=== PATIENT | female | born 1990 | race Caucasian/White ===

== ENCOUNTER 2017-06-05 11:16 | Inpatient (IN) | payer MEDICAID ==
[2017-06-05 11:53] LABS: AMNISURE (ROM) POSITIVE (NEGATIVE)
[2017-06-05 11:55] LABS: APPEARANCE,URINE SLIGHTLY-CLOUDY; BILIRUBIN,URINE NEGATIVE (NEGATIVE); GLUCOSE, URINE NEGATIVE (NEGATIVE); KETONES,URINE NEGATIVE (NEGATIVE); LEUKOCYTE ESTERASE,URINE NEGATIVE (NEGATIVE); NITRITE,URINE NEGATIVE (NEGATIVE); PROTEIN,URINE NEGATIVE (NEGATIVE); URINE SPECIFIC GRAVITY 1.005; UROBILINOGEN,URINE NEGATIVE mg/dL (<2.0)
[2017-06-05 12:12] LABS: URINE BARBITURATES SCREEN NEGATIVE; URINE METHADONE SCREEN NEGATIVE; URINE OPIATES LOW NEGATIVE; URINE PHENCYCLIDINE SCREEN NEGATIVE
[2017-06-05] MEDS ORDERED: AZITHROMYCIN INJ 500 MG VIAL IV ONE (12:43)
[2017-06-05] MEDS ORDERED: CITRIC ACID/SODIUM CITRATE ORAL SOLN 15 ML UDCUP ONE (12:43)
[2017-06-05] MEDS ORDERED: ONDANSETRON HCL INJ/PF 4 MG/2 ML SDV ONE ×3 (12:46→13:21)
[2017-06-05] MEDS ORDERED: KETOROLAC TROMETHAMINE INJ/PF 30 MG/1 ML SDV ONE (13:20)
[2017-06-05] MEDS ORDERED: OXYTOCIN 10 UNIT/ML VIAL ONE (13:20)
[2017-06-05 13:21] LABS: ABSOLUTE BASOPHILS # (AUTO) 0.1 10^3/uL (0.0-0.2); ABSOLUTE LYMPHOCYTES (AUTO) 1.8 10^3/uL (0.5-4.7); ABSOLUTE MONOCYTES (AUTO) 0.7 10^3/uL (0.1-1.4); ABSOLUTE NEUT (AUTO) 10.9 10^3/uL (1.7-8.2); BASOPHILS % (AUTO) 0.4 % (0-2); EOSINOPHILS % (AUTO) 0.3 % (0-6); HEMATOCRIT 36.9 % (36.0-47.0); HGB HCT DIFFERENCE 2.1; MEAN CORPUSCULAR HEMOGLOBIN 32.8 pg (27.0-33.4); MEAN CORPUSCULAR HGB CONC 35.4 g/dL (32.0-36.0); MEAN CORPUSCULAR VOLUME 93 fl (80-97); MONOCYTES % (AUTO) 5.5 % (3-13); RED BLOOD COUNT 3.97 10^6/uL (3.72-5.28); SEGMENTED NEUTROPHILS % (AUTO) 80.8 % (42-78); WHITE BLOOD COUNT 13.5 10^3/uL (4.0-10.5)
[2017-06-05] MEDS ORDERED: FENTANYL CITRATE INJ/PF 100 MCG/2 ML AMPUL ONE (13:21)
[2017-06-05] MEDS ORDERED: ACETAMINOPHEN 100 ML IV ONE (13:21)
[2017-06-05] MEDS ORDERED: EPHEDRINE SULFATE INJ 50 MG/1 ML AMPULE ONE (13:21)
[2017-06-05] MEDS ORDERED: OXYTOCIN/NORMAL SALINE 20 UNIT/1,000 ML RTUINJ ONE (13:21)
[2017-06-05] MEDS ORDERED: MIDAZOLAM 2 MG/2 ML INJ ONE (13:21)
[2017-06-05] MEDS ORDERED: PHENYLEPHRINE HCL INJ/PF 10 MG/1 ML SDV ONE (13:33)
[2017-06-05] MEDS ORDERED: ACETAMINOPHEN 325 MG TABLET PO PRN (16:26)
[2017-06-05] MEDS ORDERED: MEASLES,MUMPS&RUBELLA VACC/PF 0.5 ML VIAL SUBCUT PRN (16:26)
[2017-06-05] MEDS ORDERED: PROMETHAZINE HCL INJ 25 MG/1 ML VIAL IV PRN (16:26)
[2017-06-05] MEDS ORDERED: ACETAMINOPHEN 100 ML IV PRN (16:26)
[2017-06-05] MEDS ORDERED: DIPH/PERTUSS(ACELL)/TETANUS VAC/PF 0.5 ML SYR (>=10YO) IM PRN (16:26)
[2017-06-05] MEDS ORDERED: SIMETHICONE 80 MG TAB.CHEW PO PRN (16:26)
[2017-06-05] MEDS ORDERED: OXYTOCIN/NORMAL SALINE 20 UNIT/1,000 ML RTUINJ IV PRN (16:26)
--- NOTE | 2017-06-05 16:27 | OPERATIVE REPORT E ---
Operative Report NAME: GERMAN METZGER : 1990 AGE: 26Y DATE OF SURGERY: ROOM: LR200 PREOPERATIVE DIAGNOSES: 1. IUP AT 39 WEEKS. 2. PREMATURE RUPTURE OF MEMBRANES. 3. DOUBLE FOOTLING BREECH. POSTOPERATIVE DIAGNOSES: 1. IUP AT 39 WEEKS. 2. PREMATURE RUPTURE OF MEMBRANES. 3. DOUBLE FOOTLING BREECH. OPERATION: Low transverse hysterotomy section. SURGEON: KYARA SUE M.D. ANESTHESIA: Dr. Mcarthur with a spinal. 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 ESTIMATED BLOOD LOSS: 600 mL. COMPLICATIONS: None. SPECIMENS REMOVED: None. PROCEDURE: The patient was taken to the operating room, prepared and draped in normal sterile fashion in the supine position with a leftward tilt. A transverse skin incision was made with the scalpel and carried through to the underlying layer of fascia. With the same scalpel, the fascia was excised in the midline and extended laterally with Krishna scissors. The rectus muscle was dissected from the fascia bluntly and the rectus muscle was divided. Peritoneal cavity was entered bluntly with surgeon finger fracture with good visualization of the bladder and the uterus. A bladder blade was inserted and the hysterotomy was nicked in the center and extended laterally with surgeon finger fracture. The infant's feet were grasped and the infant was delivered in the normal sterile fashion using the appropriate breech extraction methods until the infant was free. The nose and mouth were suctioned with a suction bulb and the cord was clamped and cut, and the infant was handed off to awaiting pediatricians. The cord blood was collected and the placenta was removed manually. The uterus was exteriorized and cleared of clots and debris. The hysterotomy was closed in a running locked fashion. A second layer of the same suture was used to imbricate to ensure hemostasis. The abnormalities mentioned above were inspected and the above findings were noted. The uterus was then returned to the abdomen. The peritoneal cavity and rectus muscle were reapproximated with a mattress stitch of 2-0 chromic. The fascia was closed with 0 Vicryl. The subcutaneous layer was closed with plain catgut and the skin was closed with 4-0 Vicryl. The patient tolerated the procedure well. Sponge, lap and needle counts were correct x2, and the patient was taken to recovery in stable condition. DICTATING PHYSICIAN: KYARA SUE M.D. [id number] PHY#: [id number] ID: [id number] JOB#: [id number] ACCT: [id number] cc:KYARA SUE M.D. >
[2017-06-05] MEDS ORDERED: MORPHINE SULFATE 10 MG/ML INJ ONE (17:13)
[2017-06-05] MEDS: MORPHINE SULFATE 10 MG/ML INJ IV PRN ×2 (17:23→20:32)
--- NOTE | 2017-06-05 17:40 | Admission Physical ---
Datetime Report Generated by CPN: 06/05/2017 17:40 CURRENT ADMISSION Hx Assessment: The History has been Reviewed and is Current Chief Complaint: Suspected Ruptured Membranes Indication for Induction: Not Applicable Indication for Induction: Term, Intrauterine ; No Active Labor; Ruptured Membranes; Primary Section Admit Plan: Admit to Unit; Initiate Section Protocol ALLERGIES Medication Allergies: Yes Medication Allergies: ampicillin (06/05/2017); procaine (06/05/2017) Medication Allergies: ampicillin (06/05/2017) Medication Allergies: No Known Allergies (06/05/2017) Medication Allergies: No Known Allergies (08/14/2015) Latex: No Latex Allergies Food Allergies: NONE Environmental Allergies: NONE OBSTETRICAL HISTORY EDC: 06/14/2017 00:00 : 2 Para: 0 Term: 0 : 0 SAB: 0 IAB: 1 Ectopic: 0 Livin Cesareans: 0 VBACs: 0 Multiple Births: 0 Gestational Diabetes: No Rh Sensitization: No Incompetent Cervix: No GOOD: No Infertility: No ART Treatment: No Uterine Anomaly: No IUGR: No Hx Previous C/S: No Macrosomia: No Hx Loss/Stillborn: No PIH: No Hx : No Placenta Previa/Abruption: No Depression/PP Depression: No PTL/PROM: No Post Hemorrhage: No Current Procedures: Ultrasound Obstetrical History Comments: CURRENT SEE RECORDS Alcohol: No Marijuana : Yes Marijuana Frequency: Occasional Last Used: 06/05/2017 00:00 Previous Treatment: None Cocaine: No Other Illicit Drugs: No Cigarettes: Former Smoker. [id number] Cigarette Frequency: 5 - 10 per day Cigarette Comments: PT STOPPED WITH MEDICAL HISTORY Diabetes: No Blood Transfusion: No Pulmonary Disease (Asthma, TB): No Breast Disease: No Hypertension: No [place] Tender Surgery: No Heart Disease: No Hosp/Surgery: Yes Autoimmune Disorder: No Anesthetic Complications: No Kidney Disease: Yes Abnormal Pap Smear: No Neuro/Epilepsy: No Psychiatric Disorders: Yes Other Medical Diseases: No Hepatitis/Liver Disease: No Significant Family History: No Varicosities/Phlebitis: No Trauma/Violence : No Thyroid Dysfunction: No Medical History Comments: KIDNEY INFECTIONS ANXIETY LAP OPAL _ APPY INFECTIOUS HISTORY Gonorrhea: No Genital Herpes: No Chlamydia: No Tuberculosis: No Syphilis: No Hepatitis: No HIV/AIDS Exposure: No Rash or Viral Illness: No HPV: No PHYSICAL EXAM General: Normal HEENT: Normal Neurologic: Normal Thyroid: Deferred Heart: Normal Lungs: Normal Breast: Normal Back: Normal Abdomen: Normal Genitourinary Exam: Normal Extremities: Normal DTRs: Normal Pelvic Type: Adequate Physical Exam Comments: breech verified by sono Vital Signs: Reviewed VAGINAL EXAM Dilatation: 2 Effacement: 60 Station: -1 Contraction Comments: 4-6 MEMBRANES Membranes: Ruptured Amniotic Fluid Color: Clear FETUS A EGA: 38.5 Monitoring: External US FHR- Baseline: 150 Variability: Moderate 6-25bpm Accelerations: 15X15 Decelerations: None FHR Category: Category I Estimated Weight (gm): 3500 Presentation: Breech Admit Comment: SROM around 11 am, clear joe breech gbs + allergy to amp and procaine, will do azitrho Admit to L _ D prepare for not feeling ctx see chart for complete hx surgical hx: appendectomy and cholecystectomy PLANS FOR LABOR AND DELIVERY Labor and Delivery: None Pain Management: Epidural; Spinal Other Pain Management Plans: SCHEDULED C/S Feeding Preference: Both Benefit of Breast Feed Discussed: Yes Circumcision: Yes INFORMED CONSENT Assignment: Chloé Engel MD Signature: with User ID: [email or web address] : with User ID: [email or web address]
[2017-06-05] MEDS ORDERED: IBUPROFEN 800 MG TABLET PO SCH (18:00)
[2017-06-05] MEDS: OXYCODONE-ACETAMINOPHEN 5-325 MG TABLET PO PRN ×2 (18:48→23:07)
[2017-06-05] MEDS: DOCUSATE SODIUM 100 MG CAPSULE PO SCH (19:25)
[2017-06-05] MEDS: KETOROLAC TROMETHAMINE INJ/PF 30 MG/1 ML SDV IV SCH (23:06)
[2017-06-06] MEDS: MORPHINE SULFATE 10 MG/ML INJ IV PRN (02:01)
[2017-06-06] MEDS: OXYCODONE-ACETAMINOPHEN 5-325 MG TABLET PO PRN ×4 (05:53→21:53)
[2017-06-06 06:47] LABS: HEMATOCRIT 30.4 % (36.0-47.0); HGB HCT DIFFERENCE 1.7; MEAN CORPUSCULAR HEMOGLOBIN 32.8 pg (27.0-33.4); MEAN CORPUSCULAR HGB CONC 35.1 g/dL (32.0-36.0); MEAN CORPUSCULAR VOLUME 94 fl (80-97); RED BLOOD COUNT 3.26 10^6/uL (3.72-5.28); RED CELL DISTRIBUTION WIDTH 12.9 % (11.5-14.0); WHITE BLOOD COUNT 11.9 10^3/uL (4.0-10.5)
[2017-06-06 06:48] LABS: HEMOGLOBIN 10.7 g/dL (12.0-15.5)
[2017-06-06] MEDS: KETOROLAC TROMETHAMINE INJ/PF 30 MG/1 ML SDV IV SCH (09:27)
[2017-06-06] MEDS: PRENATAL VITAMIN W-O CA NO5/FE FUMARATE/FA CAPSULE PO SCH (09:28)
[2017-06-06] MEDS: DOCUSATE SODIUM 100 MG CAPSULE PO SCH ×2 (09:29→17:22)
--- NOTE | 2017-06-06 10:45 | PDOC PROGRESS REPORT ---
Subjective-OB Subjective: Post Delivery Day: 26 year old. Denies any needs at this time. Pt doing well, reports regular diet, voiding without difficulty, bleeding is light, +flatus. Physical Exam (OB) Vital Signs: Temp Pulse Resp BP Pulse Ox 98.1 F 72 16 109/70 100 06/06/17 08:00 06/06/17 08:00 06/06/17 08:00 06/06/17 08:00 06/06/17 08:00 Intake & Output 06/05/17 06/06/17 06/07/17 06:59 06:59 06:59 Intake Total 3050 Output Total 2450 700 Balance 600 -700 Weight 65.35 kg - Dressing Removed: No - Opsite Incision: Dressing, Draining - Lochia Lochia Amount: Small 10-25 ml Lochia Color: Rubra/Red - Abdomen Description: Tender, Soft, Flat Hernia Present: No Fundal Description: Firm, Midline Fundal Height: u/u - u/2 Objective-Diagnostic Laboratory: 06/06/17 06:27 06/05/17 06/05/17 06/05/17 11:30 12:56 12:56 WBC 13.5 H RBC 3.97 Hgb 13.0 Hct 36.9 MCV 93 MCH 32.8 MCHC 35.4 RDW 13.0 Plt Count 309 Seg Neutrophils % 80.8 H Lymphocytes % 13.0 Monocytes % 5.5 Eosinophils % 0.3 Basophils % 0.4 Absolute Neutrophils 10.9 H Absolute Lymphocytes 1.8 Absolute Monocytes 0.7 Absolute Eosinophils 0.0 Absolute Basophils 0.1 Urine Color YELLOW Urine Appearance SLIGHTLY-CLOUDY Urine pH 7.0 Ur Specific [place] 1.005 Urine Protein NEGATIVE Urine Glucose (UA) NEGATIVE Urine Ketones NEGATIVE Urine Blood NEGATIVE Urine Nitrite NEGATIVE Ur Leukocyte Esterase NEGATIVE Blood Type Cancelled Antibody Screen Cancelled 06/05/17 06/06/17 13:45 06:27 WBC 11.9 H RBC 3.26 L Hgb 10.7 L D Hct 30.4 L MCV 94 MCH 32.8 MCHC 35.1 RDW 12.9 Plt Count 222 Seg Neutrophils % Lymphocytes % Monocytes % Eosinophils % Basophils % Absolute Neutrophils Absolute Lymphocytes Absolute Monocytes Absolute Eosinophils Absolute Basophils Urine Color Urine Appearance Urine pH Ur Specific [place] Urine Protein Urine Glucose (UA) Urine Ketones Urine Blood Urine Nitrite Ur Leukocyte Esterase Blood Type A POSITIVE Antibody Screen NEGATIVE Assessment and Plan(PN) - Assessment and Plan (1) delivery delivered Is this a current diagnosis for this admission?: Yes - Time Spent with Patient Time with patient: Less than 15 minutes Medications reviewed and adjusted accordingly: Yes - Disposition Anticipated Discharge: Home Within: within 24 hours
[2017-06-06] MEDS: IBUPROFEN 800 MG TABLET PO SCH (17:21)
[2017-06-07] MEDS: IBUPROFEN 800 MG TABLET PO SCH ×3 (00:03→11:18)
[2017-06-07] MEDS: OXYCODONE-ACETAMINOPHEN 5-325 MG TABLET PO PRN ×3 (06:29→15:34)
[2017-06-07] MEDS: DOCUSATE SODIUM 100 MG CAPSULE PO SCH (09:13)
[2017-06-07] MEDS: PRENATAL VITAMIN W-O CA NO5/FE FUMARATE/FA CAPSULE PO SCH (09:13)
[2017-06-07 12:19] VITALS: BP 125/84
--- NOTE | 2017-06-10 14:59 | Delivery Summary ---
Del Sum A-C Datetime Report Generated by CPN: 06/10/2017 14:59 DELIVERY PERSONNEL DELIVERY PERSONNEL: [id number] Delivery Doctor:: Chloé Engel MD Anesthesiologist:: Crow Mcarthur MD GLASS CUTTER:: Seven Gavin CRNA Labor and Delivery Nurse:: Stephanie Chu RN Information Systems Consultant:: Stephanie Chu RN Neonatal Nurse Practitioner:: BOBBI Griggs Nursery Nurse:: Perri Kothari RN Nursery Nurse:: Fernando BARLOW RN Student Observers:: ODALYS ALCALA Architectural Job Captain/PALLIATIVE CARE NURSE PRACTITIONER: Kaye Narvaez CST Architectural Job Captain/PALLIATIVE CARE NURSE PRACTITIONER: Karen Sears, ST MATERNAL INFORMATION Delivery Anesthesia: Spinal Medications After Delivery: Pitocin Bolus-Please Comment; Pitocin Drip 20 Units/1000ml NSS Maternal Complications: None LABOR SUMMARY EDC: 06/14/2017 00:00 No. Babies in Womb: 1 Attempted: No Labor Anesthesia: None LABOR INFORMATION Reason for Induction: Not Applicable Onset of Labor: 06/05/2017 10:15 Oxytocin: N/A Group B Beta Strep: POSITIVE Antibiotics # of Doses: 1 Antibiotics Time of Last Dose: 1300 Name of Antibiotic Given: ZITHROMAX Steroids Given: None Reason Steroids Not Administered: Not Applicable MEMBRANES Membranes Rupture Method: Spontaneous Rupture of Membranes: 06/05/2017 10:15 Length of Rupture (hr): 4.48 Amniotic Fluid Color: Clear Amniotic Fluid Amount: Small Amniotic Fluid Odor: Normal STAGES OF LABOR Stage 3 hr: 0 Stage 3 min: 1 Total Time in Labor hr: 4 Total Time in Labor min: 30 VAGINAL DELIVERY Episiotomy: None Laceration #1: None Laceration Extension #1: N/A Laceration Repair: Not Applicable Sponge Count Correct: N/A Sharps Count Correct: N/A CSECTION DELIVERY Primary Indication: Breech Presentation Other Primary Indication: PROM CSection Urgency: Non-Scheduled CSection Incidence: Primary Labor: Labor Elective: Nonelective CSection Incision: Lower Uterine Transverse BABY A INFORMATION Delivery Date/Time: 06/05/2017 14:44 Method of Delivery: Born in Route : No : N/A Forceps: N/A Vacuum Extraction: N/A Shoulder Dystocia : No PRESENTATION/POSITION BABY A Presentation: Breech Cephalic Presentation: N/A Breech Presentation: José PLACENTA INFORMATION BABY A Placenta Delivery Time : 06/05/2017 14:45 Placenta Method of Delivery: Manual Removal Placenta Status: Delivered SCORES BABY A Heart Rate 1 min: >100 bpm Resp Effort 1 min: Slow, Irregular Reflex Irritability 1 min: [place] Muscle Tone 1 min: Some Flexion of Extremities Color 1 min: Blue/Pale Resuscitation Effort 1 min: Tactile Stimulation SCORE 1 MIN: 5 Heart Rate 5 min: >100 bpm Resp Effort 5 min: [place] Reflex Irritability 5 min: Cough or Sneeze or Pulls Away Muscle Tone 5 min: Active Motion Color 5 min: Body [place], Extremities Blue Resuscitation Effort 5 min: Tactile Stimulation SCORE 5 MIN: 9 INFORMATION BABY A Gestational Age at Delivery: 38.5 Gestational Status: Early Term- 37- 38.6 Weeks Infant Outcome : Liveborn Infant Condition : Stable Infant Sex: Male IDENTIFICATION BABY A Verification Date/Time: 06/05/2017 14:46 ID Band Number: [id number] Mother's Name Verified: Yes RN Verifying Infant: BL ROULUND, RN Additional Verifying Personnel: Fernando BARLOW, RN WEIGHT/LENGTH BABY A Infant Birthweight (gm): 3000 Weight (lb): 6 Infant Weight (oz): 10 Length (in): 19.25 Infant Length (cm): 48.90 CORD INFORMATION BABY A No. Cord Vessels: 3 Nuchal Cord : N/A Cord Blood Taken: Yes-For Storage (Mom's Blood type +) Suction: None ASSESSMENT BABY A Complications: None Physical Findings at Delivery: Within Normal Limits Infant Respirations: Appears Normal Skin to Skin: Yes Skin to Skin Time (min): 30 Investment Specialist/ALS Called : No Infant Care By: Fernando BARLOW RN/ Kevin KOTHARI RN Transferred To: [facility] BABY B INFORMATION : N/A
--- NOTE | 2017-06-10 16:12 | PDOC DISCHARGE SUMMARY ---
Final Diagnosis Discharge Date: 06/07/17 - Final Diagnosis (1) Breech presentation Is this a current diagnosis for this admission?: Yes (2) Spontaneous rupture of membranes Is this a current diagnosis for this admission?: Yes (3) delivery delivered Is this a current diagnosis for this admission?: Yes Discharge Data - Discharge Medication Home Medications: No122/Iron/Folic Acid [ Multi Tablet] 1 tab PO DAILY 06/05/17 Docusate Sodium [Colace 100 mg Capsule] 100 mg PO BID #60 capsule 06/07/17 Ferrous Sulfate 325 mg PO BID #60 tablet 06/07/17 Ibuprofen [Motrin 800 mg Tablet] 800 mg PO Q8HP PRN #30 tablet 06/07/17 Oxycodone HCl/Acetaminophen [Percocet 5-325 mg Tablet] 1 tab PO Q4HP PRN #30 tablet 06/07/17 Reason(s) for Admission: PROM - breech presentation Procedures: Ultrasound Intrapartum Procedure(s): : Low Cervical, Transverse - Diagnosis Test Laboratory: Temp Pulse Resp BP Pulse Ox 98.3 F 82 15 125/84 99 06/07/17 12:07 06/07/17 12:07 06/07/17 12:07 06/07/17 12:07 06/07/17 12:07 06/05/17 06/05/17 06/06/17 11:30 12:56 06:27 RBC 3.97 3.26 L Hgb 13.0 10.7 L D Hct 36.9 30.4 L Urine Opiates Screen NEGATIVE - Discharge information/Instructions Discharge Activity: Activity As Tolerated, Balance Activity w/Rest, No Driving, No Lifting Over 10 Pounds, No Lifting/Push/Pulling, Pelvic Rest, Slowly Increase Activity, No tub bath Discharge Diet: As Tolerated, Regular Disposition: HOME, SELF-CARE Follow up with: [facility] in: 5, Days - incision check
== END 2017-06-07 15:52 | disposition home or self-care (01) | DRG 766 ==
LOC: LC 11:16 → LR 12:25 → 2S 17:39
PROVIDERS: ADMIT Obstetrics & Gynecology; ATTEND Obstetrics & Gynecology
PROC: 10D00Z1 Extraction of Products of Conception, Low, Open Approach (ICD-10-PCS; principal; 2017-06-05)
PROC: 4A1HXCZ Monitoring of Products of Conception, Cardiac Rate, External Approach (ICD-10-PCS; 2017-06-05)
DX: O32.8XX0 Maternal care for other malpresentation of fetus, not applicable or unspecified (principal); O99.824 Streptococcus B carrier state complicating childbirth; O42.02 Full-term premature rupture of membranes, onset of labor within 24 hours of rupture; O34.03 Maternal care for unspecified congenital malformation of uterus, third trimester; O99.344 Other mental disorders complicating childbirth; F41.9 Anxiety disorder, unspecified; Z87.891 Personal history of nicotine dependence; Z90.49 Acquired absence of other specified parts of digestive tract; Q51.4 Unicornate uterus; Z88.1 Allergy status to other antibiotic agents; Z3A.38 38 weeks gestation of pregnancy; Z37.0 Single live birth
CPT/HCPCS: 1961; 36415; 80307; 81005; 84112; 85025; 85027; 86592; 86850; 86900; 86901; 94799; G0480; J0131; J0456; J1885; J2250; J2270; J2370; J2405; J2550; J2590; J3010; J3490

== ENCOUNTER 2017-08-16 10:50 | Emergency (ER) | payer MEDICAID ==
[2017-08-16] MEDS ORDERED: NORMAL SALINE 1000 ML 1,000 ML IV ONE (12:30)
[2017-08-16] MEDS ORDERED: METOCLOPRAMIDE HCL INJ/PF 10 MG/2 ML SDV IV ONE (12:30)
--- NOTE | 2017-08-16 12:31 | ER Document Report ---
ED General - General Chief Complaint: Nausea/Vomiting/Diarrhea Stated Complaint: VOMITING Time Seen by Provider: 08/16/17 12:25 Mode of Arrival: Ambulatory Information source: Patient Notes: 26-year-old female presents with his any fevers or chills. Patient unsure if she is or not. Patient is 2 months and has not had constant periods TRAVEL OUTSIDE OF THE [place] IN LAST 30 DAYS: No - HPI Onset: Other Onset/Duration: Persistent Quality of pain: Cramping Severity: Mild Pain Level: 1 Associated symptoms: Nausea, Vomiting Exacerbated by: Food Relieved by: Denies Similar symptoms previously: No Recently seen / treated by doctor: No - Related Data Allergies/Adverse Reactions: ampicillin Allergy (Verified 08/16/17 10:56) procaine [From Novocain] Allergy (Verified 08/16/17 10:56) Past Medical History - Social History Smoking Status: Never Smoker Cigarette use (# per day): No Chew tobacco use (# tins/day): No Smoking Education Provided: No Frequency of alcohol use: Occasional Drug Abuse: Marijuana Family History: Reviewed & Not Pertinent Patient has suicidal ideation: No Patient has homicidal ideation: No Renal/ Medical History: Denies: Hx Peritoneal Dialysis Past Surgical History: Reports: Hx Appendectomy, Hx Cholecystectomy Review of Systems - Review of Systems Notes: REVIEW OF SYSTEMS: CONSTITUTIONAL : Denies fever, chills, or sweats. Denies recent illness. EENT: Denies eye, ear, throat, or mouth pain or symptoms. Denies nasal or sinus congestion or discharge. Denies throat, tongue, or mouth swelling or difficulty swallowing. CARDIOVASCULAR: Denies chest pain. Denies palpitations or racing or irregular heart beat. Denies ankle edema. RESPIRATORY: Denies cough, cold, or chest congestion. Denies shortness of breath, difficulty breathing, or wheezing. GASTROINTESTINAL: Admits nausea vomiting GENITOURINARY: Denies difficulty urinating, painful urination, burning, frequency, blood in urine, or discharge. FEMALE GENITOURINARY: Denies vaginal bleeding, heavy or abnormal periods, irregular periods. Denies vaginal discharge or odor. MUSCULOSKELETAL: Denies back or neck pain or stiffness. Denies joint pain or swelling. SKIN: Denies rash, lesions or sores. HEMATOLOGIC : Denies easy bruising or bleeding. LYMPHATIC: Denies swollen, enlarged glands. NEUROLOGICAL: Denies confusion or altered mental status. Denies passing out or loss of consciousness. Denies dizziness or lightheadedness. Denies headache. Denies weakness or paralysis or loss of use of either side. Denies problems with gait or speech. Denies sensory loss, numbness, or tingling. Denies seizures. PSYCHIATRIC: Denies anxiety or stress. Denies depression, suicidal ideation, or homicidal ideation. ALL OTHER SYSTEMS REVIEWED AND NEGATIVE. PHYSICAL EXAMINATION: GENERAL: Well-appearing, well-nourished and in no acute distress. HEAD: Atraumatic, normocephalic. EYES: Pupils equal round and reactive to light, extraocular movements intact, conjunctiva are normal. ENT: Nares patent, oropharynx clear without exudates. Moist mucous membranes. NECK: Normal range of motion, supple without lymphadenopathy LUNGS: Breath sounds clear to auscultation bilaterally and equal. No wheezes rales or rhonchi. HEART: Regular rate and rhythm without murmurs ABDOMEN: Soft, nontender, nondistended abdomen. No guarding, no rebound. No masses appreciated. Female : deferred Musculoskeletal: Normal range of motion, no pitting or edema. No cyanosis. NEUROLOGICAL: Cranial nerves grossly intact. Normal speech, normal gait. Normal sensory, motor exams PSYCH: Normal mood, normal affect. SKIN: Warm, Dry, normal turgor, no rashes or lesions noted. Dictation was performed using yoone voice recognition software Physical Exam - Vital signs Vitals: Temp Pulse Resp BP Pulse Ox 98.8 F 85 18 119/74 97 08/16/17 11:01 08/16/17 11:01 08/16/17 11:01 08/16/17 11:01 08/16/17 11:01 Course - Re-evaluation Re-evalutation: 08/16/17 12:31 Patient overall looks well vital signs are stable however given the number of vomiting episodes she has had I will place an IV give her some fluids nausea control and reevaluate 08/16/17 18:26 Patient given IV fluids nausea medication states she feels much better, I will discharge her at this time and she looks well is in no distress very strict return precautions provided to her After performing a Medical Screening Examination, I estimate there is LOW risk for ACUTE APPENDICITIS, BOWEL OBSTRUCTION, ACUTE CHOLECYSTITIS, PERFORATED DIVERTICULITIS, INCARCERATED HERNIA, PANCREATITIS, PELVIC INFLAMMATORY DISEASE, PERFORATED ULCER, ECTOPIC , or TUBO-OVARIAN ABSCESS, thus I consider the discharge disposition reasonable. Also, there is no evidence or peritonitis , sepsis, or toxicity. I have reevaluated this patient multiple times and no significant life threatening changes are noted. The patient and I have discussed the diagnosis and risks, and we agree with discharging home with close follow-up with the understanding that symptoms and presentations can change. We also discussed returning to the Emergency Department immediately if new or worsening symptoms occur. We have discussed the symptoms which are most concerning (e.g., bloody stool, fever, changing or worsening pain, vomiting) that necessitate immediate return. - Vital Signs Vital signs: Temp Pulse Resp BP Pulse Ox 98.5 F 79 18 121/57 L 100 08/16/17 13:50 08/16/17 13:50 08/16/17 11:01 08/16/17 13:50 08/16/17 13:50 - Laboratory Result Diagrams: 08/16/17 12:35 08/16/17 12:35 Laboratory results interpreted by me: 08/16/17 08/16/17 12:35 12:35 Seg Neutrophils % 79.3 H Sodium 146.9 H Potassium 3.5 L Calcium 10.3 H AST 53 H Total Protein 8.4 H Albumin 5.2 H Discharge - Discharge Clinical Impression: Nausea vomiting and diarrhea Condition: Stable Disposition: HOME, SELF-CARE Instructions: Vomiting ([facility]) Additional Instructions: Follow up with your physician tomorrow for further care or return to the ED IMMEDIATELY if symptoms worsen or new concerns occur. If you cannot afford to follow up with your primary care physician a list of low cost clinics have been provided at the end of your discharge papers as well. Prescriptions: Ondansetron [Zofran Odt 4 mg Tablet] 1 - 2 tab PO Q4H PRN #15 tab.rapdis PRN Reason: For Nausea/Vomiting Referrals: JACKIE ZEE FNP [Primary Care Provider] - Follow up as needed
[2017-08-16 12:55] LABS: ABSOLUTE LYMPHOCYTES (AUTO) 1.1 10^3/uL (0.5-4.7); ABSOLUTE MONOCYTES (AUTO) 0.3 10^3/uL (0.1-1.4); ABSOLUTE NEUT (AUTO) 5.6 10^3/uL (1.7-8.2); BASOPHILS % (AUTO) 0.4 % (0-2); EOSINOPHILS % (AUTO) 0.2 % (0-6); HEMATOCRIT 41.8 % (36.0-47.0); HEMOGLOBIN 14.6 g/dL (12.0-15.5); LYMPHOCYTES % (AUTO) 15.6 % (13-45); MEAN CORPUSCULAR HEMOGLOBIN 32.3 pg (27.0-33.4); MEAN CORPUSCULAR HGB CONC 34.8 g/dL (32.0-36.0); MEAN CORPUSCULAR VOLUME 93 fl (80-97); MONOCYTES % (AUTO) 4.5 % (3-13); PLATELET COUNT 329 10^3/uL (150-450); RED BLOOD COUNT 4.51 10^6/uL (3.72-5.28); RED CELL DISTRIBUTION WIDTH 12.5 % (11.5-14.0); SEGMENTED NEUTROPHILS % (AUTO) 79.3 % (42-78); TOTAL CELLS COUNTED % (AUTO) 100 %
[2017-08-16 13:13] LABS: ALANINE AMINOTRANSFERASE 47 U/L (9-52); ALBUMIN 5.2 g/dL (3.5-5.0); ALKALINE PHOSPHATASE 74 U/L (38-126); ANION GAP 16 (5-19); ASPARTATE AMINO TRANSFERASE 53 U/L (14-36); BILIRUBIN,DIRECT 0.3 mg/dL (0.0-0.4); BILIRUBIN,TOTAL 0.7 mg/dL (0.2-1.3); BLOOD UREA NITROGEN 8 mg/dL (7-20); CALCIUM 10.3 mg/dL (8.4-10.2); CARBON DIOXIDE 28 mmol/L (22-30); CHLORIDE 103 mmol/L (98-107); GLUCOSE 88 mg/dL (75-110); POTASSIUM 3.5 mmol/L (3.6-5.0); SODIUM 146.9 mmol/L (137-145); TOTAL PROTEIN 8.4 g/dL (6.3-8.2)
[2017-08-16] MEDS ORDERED: ONDANSETRON HCL INJ/PF 4 MG/2 ML SDV IV ONE (13:41)
[2017-08-16 13:55] VITALS: BP 121/57
== END 2017-08-16 13:53 | disposition home or self-care (01) ==
LOC: ER 10:50
DX: R11.2 Nausea with vomiting, unspecified (principal); R19.7 Diarrhea, unspecified
CPT/HCPCS: 99283; 96361; 96374; 96375; 36415; 83690; 84703; 85025; 80053; J2765; J2405; J7030

== ENCOUNTER 2019-05-12 05:17 | Inpatient (IN) | payer MEDICAID ==
[2019-05-12 06:05] LABS: APPEARANCE,URINE CLEAR; BILIRUBIN,URINE NEGATIVE (NEGATIVE); COLOR,URINE YELLOW; GLUCOSE, URINE NEGATIVE (NEGATIVE); KETONES,URINE NEGATIVE (NEGATIVE); LEUKOCYTE ESTERASE,URINE NEGATIVE (NEGATIVE); NITRITE,URINE NEGATIVE (NEGATIVE); PROTEIN,URINE NEGATIVE (NEGATIVE); URINE SPECIFIC GRAVITY 1.013; UROBILINOGEN,URINE NEGATIVE mg/dL (<2.0)
[2019-05-12 06:25] LABS: URINE AMPHETAMINES SCREEN NEGATIVE; URINE BARBITURATES SCREEN NEGATIVE; URINE BENZODIAZEPINES SCREEN NEGATIVE; URINE COCAINE SCREEN NEGATIVE; URINE METHADONE SCREEN NEGATIVE; URINE PHENCYCLIDINE SCREEN NEGATIVE
[2019-05-12 06:32] LABS: URINE MARIJUANA (THC) SCREEN UNCONFIRMED POSITIVE
[2019-05-12] MEDS ORDERED: CITRIC ACID/SODIUM CITRATE ORAL SOLN 15 ML UDCUP ONE (06:41)
[2019-05-12] MEDS ORDERED: CEFAZOLIN 1 GM/D5W RTU 2 GM/100 ML RTUPB IV ONE (06:41)
[2019-05-12] MEDS ORDERED: CLINDAMYCIN 900 MG/D5W RTU 900 MG/50 ML RTUPB IV ONE (06:51)
--- NOTE | 2019-05-12 06:55 | Admission Physical ---
Datetime Report Generated by CPN: 05/12/2019 06:55 CURRENT ADMISSION Chief Complaint: Suspected Ruptured Membranes Indication for Induction: Not Applicable Admit Impression : , Intrauterine Admit Plan: Initiate Section Protocol ALLERGIES Medication Allergies: Yes Medication Allergies: ampicillin (05/12/2019); procaine (05/12/2019) Latex: No Latex Allergies Food Allergies: None Environmental Allergies: None OBSTETRICAL HISTORY EDC: 06/08/2019 00:00 : 3 Para: 1 Term: 1 : 0 SAB: 0 IAB: 1 Ectopic: 0 Livin Cesareans: 1 VBACs: 0 Multiple Births: 0 Gestational Diabetes: No Rh Sensitization: No Incompetent Cervix: No GOOD: No Infertility: No ART Treatment: No Uterine Anomaly: No IUGR: No Hx Previous C/S: No Macrosomia: No Hx Loss/Stillborn: No PIH: No Hx : No Placenta Previa/Abruption: No Depression/PP Depression: No PTL/PROM: No Post Hemorrhage: No 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: No Heart Disease: No Hosp/Surgery: Yes Autoimmune Disorder: No Anesthetic Complications: No Kidney Disease: Yes Abnormal Pap Smear: No Neuro/Epilepsy: No Psychiatric Disorders: No Other Medical Diseases: No Hepatitis/Liver Disease: No Significant Family History: No Varicosities/Phlebitis: No Trauma/Violence : No Thyroid Dysfunction: No Medical History Comments: Appendectomy, cholecystectomy, recurrent UTIs INFECTIOUS HISTORY Gonorrhea: No Genital Herpes: No Chlamydia: No Tuberculosis: No Syphilis: No Hepatitis: No HIV/AIDS Exposure: No Rash or Viral Illness: No HPV: No PHYSICAL EXAM General: Normal HEENT: Normal Neurologic: Normal Thyroid: Normal Heart: Normal Lungs: Normal Breast: Deferred Back: Normal Abdomen: Normal Genitourinary Exam: Normal Extremities: Normal DTRs: Normal Pelvic Type: Adequate FETUS A EGA: 36.1 PLANS FOR LABOR AND DELIVERY Labor and Delivery: None Pain Management: Spinal Feeding Preference: Breast Benefit of Breast Feed Discussed: Yes Circumcision: Yes INFORMED CONSENT Signature: with User ID: [email or web address]
[2019-05-12] MEDS ORDERED: ONDANSETRON HCL INJ/PF 4 MG/2 ML SDV ONE (07:10)
[2019-05-12] MEDS ORDERED: OXYTOCIN 10 UNIT/ML VIAL ONE (07:10)
[2019-05-12] MEDS ORDERED: PHENYLEPHRINE HCL INJ/PF 10 MG/1 ML SDV ONE (07:10)
[2019-05-12] MEDS ORDERED: FENTANYL CITRATE INJ/PF 100 MCG/2 ML AMPUL ONE (07:30)
[2019-05-12] MEDS ORDERED: MIDAZOLAM 2 MG/2 ML INJ ONE (07:30)
[2019-05-12] MEDS ORDERED: PROPOFOL INJ 200 MG/20 ML VIAL IV ONE (07:46)
[2019-05-12] MEDS ORDERED: PROMETHAZINE HCL INJ 25 MG/1 ML VIAL IV PRN (07:49)
[2019-05-12] MEDS ORDERED: SIMETHICONE 80 MG TAB.CHEW PO PRN (07:49)
[2019-05-12] MEDS ORDERED: ACETAMINOPHEN 1,000 MG/100 ML RTUPB IV PRN (07:49)
[2019-05-12] MEDS ORDERED: MEASLES,MUMPS&RUBELLA VACC/PF 0.5 ML VIAL SUBCUT PRN (07:49)
[2019-05-12] MEDS ORDERED: DIPH/PERTUSS(ACELL)/TETANUS VAC/PF 0.5 ML SYR (>=10YO) IM PRN (07:49)
[2019-05-12] MEDS ORDERED: ACETAMINOPHEN 325 MG TABLET PO PRN (07:49)
[2019-05-12] MEDS ORDERED: MORPHINE SULFATE 10 MG/ML INJ IM PRN (07:49)
[2019-05-12] MEDS ORDERED: OXYTOCIN/NORMAL SALINE 20 UNIT/1,000 ML RTUINJ IV PRN (07:49)
--- NOTE | 2019-05-12 07:53 | Operative Report ---
Operative Report DATE OF SURGERY: 05/12/19 PREOPERATIVE DIAGNOSIS: IUP 36 weeks rupture of membranes breech presen tation prior section POSTOPERATIVE DIAGNOSIS: Same OPERATION: Repeat low transverse section delivery of viable male infant Apgars and weight pending SURGEON: REINA SPENCER ANESTHESIA: Spinal TISSUE REMOVED OR ALTERED: Placenta COMPLICATIONS: None PROCEDURE: The patient was taken to the operating room where spinal anesthesia was obtained and found to be adequate. She was then prepped and draped in the normal sterile fashion and placed in the dorsal supine position with a leftward tilt. A Pfannenstiel skin incision was then made and carried through to the underlying layers of the fascia with the scalpel. The fascia was incised in the midline and the incision extended laterally with the Krishna scissors. The superior aspect of the fascial incision was then grasped with Beverly clamps elevated and the underlying rectus muscles dissected off bluntly. Attention was then turned to the inferior aspect of the fascial incision which in a similar fashion was grasped, tented up with Guillermo clamps, and the rectus muscles dissected off bluntly. The rectus muscles were then in the midline and the peritoneum at the amount identified and entered bluntly. The peritoneal incision was then extended superiorly and inferiorly with good visualization of the bladder. [The bladder blade was inserted and the vesicouterine peritoneum identified grasped with Dutch pickups and entered sharply with the Metzenbaum scissors. His incision was then extended laterally with the Metzenbaum scissors and a bladder flap created digitally. The bladder blade was then reinserted and the lower uterine segment incised in a transverse fashion with the scalpel. The uterine incision was then extended bluntly. The bladder blade was removed and the 's head was delivered from cephalic presentation atraumatically. The nose and mouth were suctioned and the cord doubly clamped and cut. And the infant was handed off to waiting pediatricians. The placenta was then delivered manully and the uterus exteriorized and cleared of all clots and debris. The uterine incision was then repaired with 1-0 Vicryl in a running locked fashion. A second layer of the same suture was used to obtain hemostasis via imbrication of the initial layer. The uterus was returned to the patient's abdomen. The gutters were cleared of all clots and debris. All operative sites were noted to be hemostatic. The fascia was reapproximated with 0 Vicryl in a running fashion from each lateral edge to the midline. The patient tolerated the procedure well. Sponge lap needle and instrument counts are correct -2. 2 g of Ancef were given prior to skin incision. The patient was taken to the recovery area awake and in stable condition.
[2019-05-12] MEDS ORDERED: ACETAMINOPHEN 1,000 MG/100 ML RTUPB IV ONE (08:06)
[2019-05-12] MEDS ORDERED: MORPHINE SULFATE 10 MG/ML INJ ONE (08:20)
[2019-05-12] MEDS ORDERED: OXYTOCIN/NORMAL SALINE 20 UNIT/1,000 ML RTUINJ ONE (08:32)
--- NOTE | 2019-05-12 08:56 | Delivery Summary ---
Del Sum A-C Datetime Report Generated by CPN: 05/12/2019 08:56 DELIVERY PERSONNEL DELIVERY PERSONNEL: [id number] Delivery Doctor:: Dio Garcia MD Anesthesiologist:: Carmel Cooper MD BENZENE WASHER:: Roberto Vick CRNA Labor and Delivery Nurse:: Amanda Jones RNseed sales manager Nurse:: Andria Skaggs RN Insurance Sales Executive:: Amanda Jones RN Neonatal Nurse Practitioner:: BOBBI Schmid Nursery Nurse:: Mame Suárez RN Program Developer/FLIGHT DECK OFFICER: Kaye Narvaez CST Program Developer/FLIGHT DECK OFFICER: Irene Paula, ST MATERNAL INFORMATION Delivery Anesthesia: Spinal Medications After Delivery: Pitocin Drip 20 Units/1000ml NSS Delivery QBL: 520 Maternal Complications: Premature Rupture of Membranes Complication Details: unicorneate uterus, breech LABOR SUMMARY EDC: 06/08/2019 00:00 No. Babies in Womb: 1 Attempted: No LABOR INFORMATION Reason for Induction: Not Applicable Onset of Labor: 05/12/2019 04:15 Oxytocin: N/A Group B Beta Strep: unknown Steroids Given: None Reason Steroids Not Administered: Not Applicable MEMBRANES Membranes Rupture Method: Spontaneous Rupture of Membranes: 05/12/2019 04:15 Length of Rupture (hr): 3.23 Amniotic Fluid Color: Clear Amniotic Fluid Amount: Moderate Amniotic Fluid Odor: Normal STAGES OF LABOR Stage 3 hr: 0 Stage 3 min: 1 Total Time in Labor hr: 3 Total Time in Labor min: 15 VAGINAL DELIVERY Episiotomy: None Laceration #1: None Laceration Extension #1: N/A Sponge Count Correct: N/A CSECTION DELIVERY Primary Indication: Breech Presentation Secondary Indication: Repeat Elective CSection Incision: Lower Uterine Transverse BABY A INFORMATION Infant Delivery Date/Time: 05/12/2019 07:29 Method of Delivery: Born in Route : No : N/A Forceps: N/A Vacuum Extraction: N/A Shoulder Dystocia : No PRESENTATION/POSITION BABY A Presentation: Breech Cephalic Presentation: N/A Vertex Position: N/A PLACENTA INFORMATION BABY A Placenta Delivery Time : 05/12/2019 07:30 Placenta Method of Delivery: Manual Removal Placenta Status: Delivered SCORES BABY A Heart Rate 1 min: >100 bpm Resp Effort 1 min: Good Cry Reflex Irritability 1 min: Cough or Sneeze or Pulls Away Muscle Tone 1 min: Active Motion Color 1 min: Blue/Pale Resuscitation Effort 1 min: Tactile Stimulation SCORE 1 MIN: 8 Heart Rate 5 min: >100 bpm Resp Effort 5 min: Good Cry Reflex Irritability 5 min: Cough or Sneeze or Pulls Away Muscle Tone 5 min: Active Motion Color 5 min: Body Bonaparte, Extremities Blue Resuscitation Effort 5 min: Tactile Stimulation SCORE 5 MIN: 9 INFANT INFORMATION BABY A Gestational Age at Delivery: 36.1 Gestational Status: Late - 34- 36.6 Weeks Infant Outcome : Liveborn Condition : Stable Sex: Male IDENTIFICATION BABY A Verification Date/Time: 05/12/2019 07:30 ID Band Number: [id number] Mother's Name Verified: Yes Infant RN Verifying : ,RN and Baljit, RN WEIGHT/LENGTH BABY A Infant Birthweight (gm): 3250 Infant Weight (lb): 7 Infant Weight (oz): 3 Length (in): 20.00 Infant Length (cm): 50.80 CORD INFORMATION BABY A No. Cord Vessels: 3 Nuchal Cord : N/A Cord Blood Taken: Yes-For Storage (Mom's Blood type +) Infant Suction: None ASSESSMENT BABY A Infant Complications: None Physical Findings at Delivery: Within Normal Limits Respirations: Appears Normal Skin to Skin: No Transferred To: [facility] SIGNATURES Signature: with User ID: [email or web address]
[2019-05-12] MEDS ORDERED: HYDROMORPHONE HCL INJ/PF 2 MG/ML AMPULE IV PRN (09:27)
[2019-05-12] MEDS ORDERED: HYDROMORPHONE HCL INJ/PF 2 MG/ML AMPULE ONE (09:29)
[2019-05-12 09:36] LABS: ABSOLUTE EOSINOPHILS # (AUTO) 0.1 10^3/uL (0.0-0.6); ABSOLUTE LYMPHOCYTES (AUTO) 1.9 10^3/uL (0.5-4.7); ABSOLUTE MONOCYTES (AUTO) 0.8 10^3/uL (0.1-1.4); ABSOLUTE NEUT (AUTO) 9.5 10^3/uL (1.7-8.2); BASOPHILS % (AUTO) 0.4 % (0-2); EOSINOPHILS % (AUTO) 0.9 % (0-6); HEMATOCRIT 34.3 % (36.0-47.0); HEMOGLOBIN 11.6 g/dL (12.0-15.5); LYMPHOCYTES % (AUTO) 15.4 % (13-45); MEAN CORPUSCULAR HEMOGLOBIN 32.6 pg (27.0-33.4); MEAN CORPUSCULAR HGB CONC 33.9 g/dL (32.0-36.0); MEAN CORPUSCULAR VOLUME 96 fl (80-97); MONOCYTES % (AUTO) 6.1 % (3-13); PLATELET COUNT 259 10^3/uL (150-450); RED BLOOD COUNT 3.57 10^6/uL (3.72-5.28); RED CELL DISTRIBUTION WIDTH 12.8 % (11.5-14.0); SEGMENTED NEUTROPHILS % (AUTO) 77.2 % (42-78); TOTAL CELLS COUNTED % (AUTO) 100 %; WHITE BLOOD COUNT 12.3 10^3/uL (4.0-10.5)
[2019-05-12] MEDS ORDERED: PRENATAL VITAMIN W DHA CAPSULE PO ONE (09:36)
[2019-05-12] MEDS ORDERED: DOCUSATE SODIUM 100 MG CAPSULE ONE (09:36)
[2019-05-12] MEDS: PRENATAL VITAMIN W DHA CAPSULE PO SCH (09:37)
[2019-05-12] MEDS: DOCUSATE SODIUM 100 MG CAPSULE PO SCH ×2 (09:37→17:31)
[2019-05-12] MEDS ORDERED: IRON PO SCH (10:00)
[2019-05-12] MEDS ORDERED: DHA PO SCH (10:00)
[2019-05-12] MEDS ORDERED: FOLIC AC PO SCH (10:00)
[2019-05-12] MEDS ORDERED: PRENATAL PO SCH (10:00)
[2019-05-12] MEDS: OXYCODONE-ACETAMINOPHEN 5-325 MG TABLET PO PRN ×2 (12:42→17:33)
[2019-05-12] MEDS: KETOROLAC TROMETHAMINE INJ/PF 30 MG/1 ML SDV IV SCH ×2 (13:20→23:07)
[2019-05-13] MEDS: OXYCODONE-ACETAMINOPHEN 5-325 MG TABLET PO PRN ×5 (02:33→22:12)
[2019-05-13] MEDS: KETOROLAC TROMETHAMINE INJ/PF 30 MG/1 ML SDV IV SCH ×3 (05:48→22:10)
[2019-05-13 08:10] LABS: HEMATOCRIT 28.9 % (36.0-47.0); HEMOGLOBIN 9.9 g/dL (12.0-15.5); MEAN CORPUSCULAR HEMOGLOBIN 33.1 pg (27.0-33.4); MEAN CORPUSCULAR HGB CONC 34.4 g/dL (32.0-36.0); MEAN CORPUSCULAR VOLUME 96 fl (80-97); PLATELET COUNT 240 10^3/uL (150-450); RED CELL DISTRIBUTION WIDTH 12.9 % (11.5-14.0); WHITE BLOOD COUNT 11.2 10^3/uL (4.0-10.5)
[2019-05-13] MEDS: DOCUSATE SODIUM 100 MG CAPSULE PO SCH ×2 (09:12→17:18)
[2019-05-13] MEDS: PRENATAL VITAMIN W DHA CAPSULE PO SCH (09:12)
[2019-05-13] MEDS: IBUPROFEN 800 MG TABLET PO SCH ×3 (11:58→23:52)
--- NOTE | 2019-05-13 17:01 | PDOC PROGRESS REPORT ---
Subjective-OB Progress Note for:: 05/13/19 Subjective: 28yo G3 now P2 s/ repeat ppd1. Ambulating and voiding without difficulty. Reports pain well controlled with medication. Denies any concerns at this time Physical Exam (OB) Vital Signs: Temp Pulse Resp BP Pulse Ox 98 F 78 16 99/65 L 97 05/13/19 11:27 05/13/19 11:27 05/13/19 11:27 05/13/19 11:27 05/13/19 11:27 Intake & Output 05/12/19 05/13/19 05/14/19 06:59 06:59 06:59 Output Total 2200 Balance -2200 Weight 59.5 kg - General General Appearance: Appears well In distress: None - PIH/Pre-Eclampsia DTR's: 1 + Clonus: Negative Headache: Absent Epigastric Pain: No Visual Changes: No - Dressing Removed: No Incision: Dressing Closure Type: pressure - Lochia Lochia Amount: Scant < 10 ml Lochia Color: Rubra/Red - Abdomen Description: Soft, Round Hernia Present: No Fundal Description: Firm, Midline Describe if Not Midline: unicornuate uterus Fundal Height: u/u - u/2 - Respiratory Respiratory Status: No respiratory distress - Extremities Upper extremity: Normal inspection Lower extremities: Normal inspection - Neurological Cognition: Normal Orientation: AAOx4 - Psychological Associated symptoms: Normal affect, Normal mood Objective-Diagnostic Laboratory: 05/13/19 07:37 05/13/19 07:37 WBC 11.2 H RBC 3.00 L Hgb 9.9 L Hct 28.9 L MCV 96 MCH 33.1 MCHC 34.4 RDW 12.9 Plt Count 240 Assessment and Plan(PN) - Assessment and Plan (1) delivery Is this a current diagnosis for this admission?: Yes Plan: delivered, baby in room, doing well. 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 Qualified Code(s): O34.03 - Maternal care for unspecified congenital malformation of uterus, third trimester; Q51.4 - Unicornate uterus Is this a current diagnosis for this admission?: Yes Plan: delivered (3) Acute blood loss anemia Is this a current diagnosis for this admission?: Yes Plan: Increase dietary iron and FeSO4 (4) Breech presentation Qualifiers: Fetus number: single or unspecified fetus Qualified Code(s): O32.1XX0 - Maternal care for breech presentation, not applicable or unspecified Is this a current diagnosis for this admission?: Yes Plan: delivered (5) delivery delivered Is this a current diagnosis for this admission?: Yes Plan: routine pp care (6) Spontaneous rupture of membranes Is this a current diagnosis for this admission?: Yes Plan: delivered (7) Drug use affecting Qualifiers: Trimester: unspecified trimester Qualified Code(s): O99.320 - Drug use complicating , unspecified trimester Is this a current diagnosis for this admission?: Yes Plan: cessation encouraged, discharge planning consult placed - Time Spent with Patient Time with patient: Less than 15 minutes Medications reviewed and adjusted accordingly: Yes - Disposition Anticipated Discharge: Home Within: within 24 hours
[2019-05-14] MEDS: OXYCODONE-ACETAMINOPHEN 5-325 MG TABLET PO PRN ×4 (02:30→16:02)
[2019-05-14] MEDS: IBUPROFEN 800 MG TABLET PO SCH ×2 (06:32→12:14)
[2019-05-14] MEDS: KETOROLAC TROMETHAMINE INJ/PF 30 MG/1 ML SDV IV SCH ×2 (06:33→14:29)
--- NOTE | 2019-05-14 10:09 | PDOC PROGRESS REPORT ---
Subjective-OB Progress Note for:: 05/14/19 Subjective: Doing well, no c/o, OOB, voiding, lochia scant, incision dry and intact, , pain under control Physical Exam (OB) Vital Signs: Temp Pulse Resp BP Pulse Ox 98.3 F 92 18 110/68 98 05/14/19 07:35 05/14/19 07:35 05/14/19 04:17 05/14/19 07:35 05/14/19 07:35 Intake & Output 05/13/19 05/14/19 05/15/19 06:59 06:59 06:59 Output Total 2200 Balance -2200 - PIH/Pre-Eclampsia DTR's: 1 + Clonus: Negative Headache: Absent Epigastric Pain: No Visual Changes: No - Dressing Removed: No Incision: Dressing Closure Type: OPSITE - Lochia Lochia Amount: Small 10-25 ml Lochia Color: Rubra/Red - Abdomen Description: Soft Hernia Present: No Fundal Description: Firm, Midline Describe if Not Midline: unicornuate uterus Fundal Height: u/u - u/2 Objective-Diagnostic Laboratory: 05/13/19 07:37 Assessment and Plan(PN) - Assessment and Plan (1) Breech presentation Qualifiers: Fetus number: single or unspecified fetus Qualified Code(s): O32.1XX0 - Maternal care for breech presentation, not applicable or unspecified Is this a current diagnosis for this admission?: Yes (2) Spontaneous rupture of membranes Is this a current diagnosis for this admission?: Yes (3) delivery Is this a current diagnosis for this admission?: Yes (4) 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
--- NOTE | 2019-05-14 10:15 | PDOC DISCHARGE SUMMARY ---
Impression - Admit/DC Date/PCP Admission Date/Primary Care Provider: 05/12/19 06:23 JJ HERNANDEZ Discharge Date: 05/14/19 - Discharge Diagnosis (1) Breech presentation Is this a current diagnosis for this admission?: Yes (2) Spontaneous rupture of membranes Is this a current diagnosis for this admission?: Yes (3) delivery Is this a current diagnosis for this admission?: Yes (4) Unicornate uterus affecting Is this a current diagnosis for this admission?: Yes - Additional Information Resuscitation Status: Full Code Discharge Diet: As Tolerated, Regular Discharge Activity: Activity As Tolerated, No Driving, No Lifting Over 10 Pounds, No Lifting/Push/Pulling, Pelvic Rest, No tub bath Referrals: REINA SPENCER MD [ACTIVE STAFF] - 05/19/19 10:00 am (RTC 1 week) Prescriptions: Oxycodone HCl/Acetaminophen [Percocet 5-325 mg Tablet] 2 tab PO Q4HP PRN #20 tablet PRN Reason: Ibuprofen [Motrin 800 mg Tablet] 800 mg PO Q6 #30 tablet Home Medications: 105/Iron/Folic AC/Dha [Prena1 True Combo Pack] 1 tab PO DAILY 05/12/19 Ibuprofen [Motrin 800 mg Tablet] 800 mg PO Q6 #30 tablet 05/14/19 Oxycodone HCl/Acetaminophen [Percocet 5-325 mg Tablet] 2 tab PO Q4HP PRN #20 tablet 05/14/19 HPI Gestational Age: 36.1 Reason(s) for Admission: PROM Admission Note: Breech Procedures: NST, Ultrasound Intrapartum Procedure(s): : Low Cervical, Transverse Results Laboratory Results: WBC 11.2 10^3/uL (4.0-10.5) H 05/13/19 07:37 RBC 3.00 10^6/uL (3.72-5.28) L 05/13/19 07:37 Hgb 9.9 g/dL (12.0-15.5) L 05/13/19 07:37 Hct 28.9 % (36.0-47.0) L 05/13/19 07:37 MCV 96 fl (80-97) 05/13/19 07:37 MCH 33.1 pg (27.0-33.4) 05/13/19 07:37 MCHC 34.4 g/dL (32.0-36.0) 05/13/19 07:37 RDW 12.9 % (11.5-14.0) 05/13/19 07:37 Plt Count 240 10^3/uL (150-450) 05/13/19 07:37 Lymph % (Auto) 15.4 % (13-45) 05/12/19 08:52 [place] % (Auto) 6.1 % (3-13) 05/12/19 08:52 Eos % (Auto) 0.9 % (0-6) 05/12/19 08:52 Baso % (Auto) 0.4 % (0-2) 05/12/19 08:52 Absolute Neuts (auto) 9.5 10^3/uL (1.7-8.2) H 05/12/19 08:52 Absolute Lymphs (auto) 1.9 10^3/uL (0.5-4.7) 05/12/19 08:52 Absolute Monos (auto) 0.8 10^3/uL (0.1-1.4) 05/12/19 08:52 Absolute Eos (auto) 0.1 10^3/uL (0.0-0.6) 05/12/19 08:52 Absolute Basos (auto) 0.0 10^3/uL (0.0-0.2) 05/12/19 08:52 Seg Neutrophils % 77.2 % (42-78) 05/12/19 08:52 Urine Color YELLOW 05/12/19 05:20 Urine Appearance CLEAR 05/12/19 05:20 Urine pH 7.0 (5.0-9.0) 05/12/19 05:20 Ur Specific [place] 1.013 05/12/19 05:20 Urine Protein NEGATIVE mg/dL (NEGATIVE) 05/12/19 05:20 Urine Glucose (UA) NEGATIVE mg/dL (NEGATIVE) 05/12/19 05:20 Urine Ketones NEGATIVE mg/dL (NEGATIVE) 05/12/19 05:20 Urine Blood NEGATIVE (NEGATIVE) 05/12/19 05:20 Urine Nitrite NEGATIVE (NEGATIVE) 05/12/19 05:20 Urine Bilirubin NEGATIVE (NEGATIVE) 05/12/19 05:20 Urine Urobilinogen NEGATIVE mg/dL (<2.0) 05/12/19 05:20 Ur Leukocyte Esterase NEGATIVE (NEGATIVE) 05/12/19 05:20 Urine Ascorbic Acid NEGATIVE (NEGATIVE) 05/12/19 05:20 Membranes Rupture POSITIVE (NEGATIVE) H 05/12/19 05:20 Urine Opiates Screen NEGATIVE 05/12/19 05:20 Urine Methadone Screen NEGATIVE 05/12/19 05:20 Ur Barbiturates Screen NEGATIVE 05/12/19 05:20 Ur Phencyclidine Scrn NEGATIVE 05/12/19 05:20 Ur Amphetamines Screen NEGATIVE 05/12/19 05:20 U Benzodiazepines Scrn NEGATIVE 05/12/19 05:20 Urine Cocaine Screen NEGATIVE 05/12/19 05:20 U Marijuana (THC) Screen UNCONFIRMED POSITIVE 05/12/19 05:20 RPR NONREACTIVE (NONREACTIVE) 05/12/19 08:52 Blood Type A POSITIVE 05/12/19 07:01 Antibody Screen NEGATIVE 05/12/19 07:01
[2019-05-14] MEDS: DOCUSATE SODIUM 100 MG CAPSULE PO SCH (10:27)
[2019-05-14] MEDS: PRENATAL VITAMIN W DHA CAPSULE PO SCH (10:27)
[2019-05-14 13:57] VITALS: BP 112/72
== END 2019-05-14 17:32 | disposition home or self-care (01) | DRG 787 ==
LOC: LC 05:17 → LR 06:23 → 2S 10:00
PROVIDERS: ADMIT Obstetrics & Gynecology Gynecology; ATTEND Obstetrics & Gynecology Gynecology
PROC: 10D00Z1 Extraction of Products of Conception, Low, Open Approach (ICD-10-PCS; principal; 2019-05-12)
DX: O42.913 Preterm premature rupture of membranes, unspecified as to length of time between rupture and onset of labor, third trimester (principal); O99.324 Drug use complicating childbirth; D62 Acute posthemorrhagic anemia; O34.03 Maternal care for unspecified congenital malformation of uterus, third trimester; O34.211 Maternal care for low transverse scar from previous cesarean delivery; O32.1XX0 Maternal care for breech presentation, not applicable or unspecified; Q51.4 Unicornate uterus; Z3A.36 36 weeks gestation of pregnancy; Z37.0 Single live birth; Z90.49 Acquired absence of other specified parts of digestive tract; F12.90 Cannabis use, unspecified, uncomplicated; O99.02 Anemia complicating childbirth; Z88.0 Allergy status to penicillin; Z87.891 Personal history of nicotine dependence
CPT/HCPCS: 1961; 36415; 80307; 80349; 81005; 84112; 85025; 85027; 86592; 86850; 86900; 86901; 94799; G0480; J0131; J0690; J1170; J1885; J2250; J2270; J2370; J2405; J2590; J2704; J3010; J3490